=== PATIENT | male | born 1955 | race Caucasian/White ===

== ENCOUNTER 2021-10-20 17:00 | Inpatient (IN) | payer BC ==
[2021-10-20] MEDS ORDERED: NA CHLORIDE 0.9% 1,000 ML ONE (17:47)
[2021-10-20 17:50] LABS: Absolute Lymphocytes (CBC) 1.6 K/uL (0.7-4.9); Hematocrit 41.4 % (39.6-49.0); Lymphocytes % 25.4 % (15.3-44.8); MPV 8.3 fL (7.6-11.3); RBC Red Blood Cell Count 4.66 M/uL (4.33-5.43)
[2021-10-20 18:17] LABS: ALT/SGPT 26 U/L (12-78); AST/SGOT 12 U/L (15-37); Albumin 3.7 g/dL (3.4-5.0); Alkaline Phosphatase 62 U/L (45-117); BUN Blood Urea Nitrogen 17 mg/dL (7-18); Bicarbonate 27 mmol/L (21-32); Bilirubin Total 0.8 mg/dL (0.2-1.0); Glucose Level 106 mg/dL (74-106); Potassium 3.6 mmol/L (3.5-5.1); Protein, Total 6.6 g/dL (6.4-8.2); Sodium Level 143 mmol/L (136-145)
--- NOTE | 2021-10-20 18:45 | RAD REPORT ---
EXAM DESCRIPTION: RAD - Chest Single View - 10/20/2021 6:05 pm CLINICAL HISTORY: COUGH COMPARISON: Two view chest 01/29/2021 TECHNIQUE: AP portable chest image was obtained 10/20/2021 6:05 pm . FINDINGS: No focal lung parenchymal process. Interstitial pattern matches comparison. Heart and vasc ulature are normal. No measurable pleural effusion and no pneumothorax. No acute bony abnormality see n. No acute aortic findings suspected. IMPRESSION: No acute cardiopulmonary process. No significant change from comparison study.
--- NOTE | 2021-10-20 19:04 | RAD REPORT ---
EXAM DESCRIPTION: CT - Soft Tissue Neck W/Contr - 10/20/2021 6:43 pm CLINICAL HISTORY: swelling;Painleft-side COMPARISON: Thorax W/ Con dated 10/20/2021 TECHNIQUE: During dynamic enhancement using 100 milliliters nonionic IV contrast, axial 5 millimeter thick images of the neck were obtained. All CT scans are performed using dose optimization technique as appropriate and may include automated exposure control or mA/KV adjustment according to patient size. FINDINGS: No acute intracranial finding identified. In the lateral right cerebellum there is a 2.5 x 1 centimeter area of coarse calcification. This appears to be discrete from any specific vessel. Mor e laterally the transverse and sigmoid sinuses are unremarkable. This could be the sequela of an old injury. Intracranial detail is limited on a soft tissue neck examination. This is not seen as an acut darius clinically significant finding. This can be further evaluated with outpatient MRI imaging. No globe or orbital content abnormality. Mastoid air cells and paranasal sinuses are clear. Patient h as significant right deviation of the nasal septum anteriorly and left deviation of the septum pump tender iorly. No soft palate or tongue base abnormality. Epiglottis and laryngeal structures are unremarkable. No p haryngeal mass, asymmetry or enhancement. No tonsillar abnormality. Parapharyngeal fat is normal in a ppearance. The patient has a retropharyngeal fluid or low-density collection that is 2.1 cm AP x 3.5 cm TR x 8.2 cm CC. This spans the retropharyngeal space from the C1 level to the C6 level. This has a homogeneou s low-attenuation of approximately 16 Hounsfield units. No thickened rim or rind. Overlying pharyngea l tissue anteriorly is normal in signal intensity. There are prominent bony degenerative changes at C 5-C7. In the mid and inferolateral neck there is edematous stranding in the subcutaneous fatty tissue. This extends deeper into the neck between the trapezius and sternocleidomastoid muscles at the axial leve l of the hyoid bone. This stranding extends to the lateral margin of the retropharyngeal collection. No air or foreign body in the soft tissues. The parotid, submandibular and thyroid gland tissues are unremarkable. A few small sub centimeter cer vical lymph nodes are present with no bulky lymphadenopathy. IMPRESSION: Abnormal retropharyngeal fluid collection 2.1 cm AP x 3.5 cm TR x 8.2 cm CC pending betw een C1 and C6. The retropharyngeal collection is homogeneous low-density with no thickened rim, enhancing component or reactive changes to the overlying posterior pharyngeal mucosa. This could be an old sterile retrop haryngeal fluid collection from prior infection or retropharyngeal effusion. Patient has stranding in the fatty tissues of the left lateral neck that extends from the skin surfac e deeper into the neck abutting the retropharyngeal collection. It is possible the retropharyngeal co llection is decompressing into the left lateral fatty tissues. Retropharyngeal abscess cannot be excluded though the patient apparently does not have other symptoms supporting this diagnosis. No abnormal lymphadenopathy, pharyngeal abnormality or other suspicious mass. Dense calcifications in the lateral right cerebellum may be the sequela of an old injury. These are n ot fully assessed but not regarded as acutely significant. Comparison can be made with any prior outs jean claude imaging or patient could undergo outpatient MRI head examination.
--- NOTE | 2021-10-20 19:05 | RAD REPORT ---
EXAM DESCRIPTION: CT - Thorax W/ Con - 10/20/2021 6:51 pm CLINICAL HISTORY: swelling;Pain COMPARISON: <Comparisons> TECHNIQUE: Dynamically enhanced 5 mm thick images of the chest were obtained during administration o f 100 mL non-ionic IV contrast. All CT scans are performed using dose optimization technique as appropriate and may include automated exposure control or mA/KV adjustment according to patient size. FINDINGS: No mass or infiltrate in the lung parenchyma. No pleural thickening or pleural effusion. N o pneumothorax. No chest wall mass or abnormal axillary lymphadenopathy. No abnormal mediastinal or hilar mass or lymphadenopathy seen. Stranding at the anterior left base the neck is detailed in the separate CT neck report. IMPRESSION: Negative contrast enhanced CT chest examination.
--- NOTE | 2021-10-20 20:22 | EDPHYS ---
Physician Documentation [facility] Name: Adam Mata Age: 66 yrs Sex: Male : 1955 Arrival Date: 10/20/2021 Time: 17:02 Bed 13 Private MD: Monica Worthy ED Physician Victor Hugo King HPI: 10/20 17:33 This 66 yrs old Male presents to ER via Ambulatory with complaints of Neck rayo Problem. 17:33 The patient or guardian complains of swelling. The symptoms are located on the left rayo supraclavicular area. Onset: The symptoms/episode began/occurred 1 day(s) ago. Context: The problem was sustained at an unknown location. The pain does not radiate. The patient has not experienced similar symptoms in the past. Historical: - Allergies: 17:08 No Known Allergies; tw2 - Home Meds: 17:08 meloxicam 7.5 mg oral TbDi 1 tab once daily [Active]; atorvastatin oral [Active]; tw2 - PMHx: 17:08 Hypercholesterolemia; lymphedema b/l LE; tw2 - PSHx: 17:08 lap band; umbilical hernia; fusion C6-7; left ankle; tw2 - Immunization history:: Client reports receiving the 2nd dose of the Covid vaccine. - Social history:: Smoking status: Patient denies any tobacco usage or history of. Patient uses alcohol, on a daily basis. "a beer or 2 a day". - Family history:: not pertinent. ROS: 17:33 Constitutional: Negative for fever, chills, and weight loss, Eyes: Negative for injury, rayo pain, redness, and discharge, ENT: Negative for injury, pain, and discharge, Neck: Negative for injury, pain, and swelling, Cardiovascular: Negative for chest pain, palpitations, and edema, Respiratory: Negative for shortness of breath, cough, wheezing, and pleuritic chest pain, Abdomen/GI: Negative for abdominal pain, nausea, vomiting, diarrhea, and constipation, Back: Negative for injury and pain, : Negative for injury, bleeding, discharge, and swelling, MS/Extremity: Negative for injury and deformity, Skin: Negative for injury, rash, and discoloration, Neuro: Negative for headache, weakness, numbness, tingling, and seizure. Exam: 17:33 Constitutional: This is a well developed, well nourished patient who is awake, alert, rayo and in no acute distress. Head/Face: Normocephalic, atraumatic. Eyes: Pupils equal round and reactive to light, extra-ocular motions intact. Lids and lashes normal. Conjunctiva and sclera are non-icteric and not injected. Cornea within normal limits. Periorbital areas with no swelling, redness, or edema. ENT: Nares patent. No nasal discharge, no septal abnormalities noted. Tympanic membranes are normal and external auditory canals are clear. Oropharynx with no redness, swelling, or masses, exudates, or evidence of obstruction, uvula midline. Mucous membranes moist. Neck: Trachea midline, no thyromegaly or masses palpated, and no cervical lymphadenopathy. Supple, full range of motion without nuchal rigidity, or vertebral point tenderness. No Meningismus. Cardiovascular: Regular rate and rhythm with a normal S1 and S2. No gallops, murmurs, or rubs. Normal PMI, no JVD. No pulse deficits. Respiratory: Lungs have equal breath sounds bilaterally, clear to auscultation and percussion. No rales, rhonchi or wheezes noted. No increased work of breathing, no retractions or nasal flaring. Abdomen/GI: Soft, non-tender, with normal bowel sounds. No distension or tympany. No guarding or rebound. No evidence of tenderness throughout. Back: No spinal tenderness. No costovertebral tenderness. Full range of motion. Male : Normal genitalia with no discharge or lesions. Skin: Warm, dry with normal turgor. Normal color with no rashes, no lesions, and no evidence of cellulitis. MS/ Extremity: Pulses equal, no cyanosis. Neurovascular intact. Full, normal range of motion. Neuro: Awake and alert, GCS 15, oriented to person, place, time, and situation. Cranial nerves II-XII grossly intact. Motor strength 5/5 in all extremities. Sensory grossly intact. Cerebellar exam normal. Normal gait. Psych: Awake, alert, with orientation to person, place and time. Behavior, mood, and affect are within normal limits. 17:33 Chest/axilla: Inspection: normal, Palpation: is normal, Axilla: are normal, Lymph nodes: lymphadenopathy is not appreciated. 18:09 ECG was reviewed by the Attending Physician. [facility] Vital Signs: 17:06 BP 139 / 80; Pulse 78; Resp 17; Temp 97.8(TE); Pulse Ox 99% on R/A; Weight 120.2 kg; tw2 Height 5 ft. 10 in. (177.80 cm); Pain 0/10; 18:10 BP 135 / 88; Pulse 65; Resp 15; Pulse Ox 98% ; Pain 0/10; jl7 18:45 BP 125 / 77; Pulse 65; Resp 15; Pulse Ox 95% ; jl7 20:48 BP 133 / 84; Pulse 63; Resp 18; Pulse Ox 97% on R/A; ke1 17:06 Body Mass Index 38.02 (120.20 kg, 177.80 cm) tw2 MDM: 17:[address] [facility] 17:36 Differential diagnosis: cervical strain, Neck Contusion. Data reviewed: vital signs, [facility] nurses notes, lab test result(s), EKG, radiologic studies, CT scan, plain films. Data interpreted: school bus monitor: rate is 78 beats/min, rhythm is regular, Pulse oximetry: on room air is 99 %. Test interpretation: by ED physician or midlevel provider: ECG, plain radiologic studies. Counseling: I had a detailed discussion with the patient and/or guardian regarding: the historical points, exam findings, and any diagnostic results supporting the discharge/admit diagnosis, lab results, radiology results. 20:18 ED course: Dr. Penn came to evaluate patient. Recommended inpatient with steroids and jr8 antibiotics for the next couple of days and will reevaluate. Will consult will admit to medicine.. 10/20 17:30 Order name: CBC with Diff; Complete Time: 18:40 [facility] 10/20 17:30 Order name: Comprehensive Metabolic Panel; Complete Time: 18:40 [facility] 10/20 17:30 Order name: Chest Single View XRAY; Complete Time: 19:01 [facility] 10/20 19:11 Order name: Blood Culture Adult (2) [facility] 10/20 19:11 Order name: Lactate; Complete Time: 21:55 [facility] 10/20 20:40 Order name: SARS-COV-2 RT PCR (Document "Date of Onset" if Symptomatic); Complete Time: ke1 21:43 10/20 17:30 Order name: CT Soft Tissue Neck W/contr; Complete Time: 19:10 [facility] 10/20 17:30 Order name: CT Chest W/ Con; Complete Time: 19:10 rayo 10/20 17:30 Order name: EKG; Complete Time: 17:30 [facility] 10/20 17:30 Order name: EKG - Nurse/Tech; Complete Time: 18:45 rayo EC:09 Rate is 63 beats/min. Rhythm is regular. QRS [place] is Normal. MA interval is normal. QRS rayo interval is normal. QT interval is normal. No Q waves. T waves are Normal. No ST changes noted. Clinical impression: Normal ECG and No evidence of ischemia. Interpreted by me. Reviewed by me. Administered Medications: 18:15 Drug: NS 0.9% 500 ml Route: IV; Rate: bolus; Site: right forearm; jl7 18:45 Follow up: Response: No adverse reaction; IV Status: Completed infusion; IV Intake: jl7 500ml 18:15 Drug: NS 0.9% 1000 ml Route: IV; Rate: 125 ml/hr; Site: right forearm; jl7 21:01 Drug: Zosyn (piperacillin-tazobactam) 3.375 grams Route: IVPB; Infused Over: 60 mins; ke1 Site: right forearm; 22:01 Follow up: IV Status: Completed infusion ke1 22:13 Follow up: Response: No adverse reaction ke1 21:01 Drug: SOLU-Medrol (methylPrednisoLONE) 125 mg Route: IVP; Site: right forearm; ke1 22:12 Follow up: Response: No adverse reaction ke1 Disposition Summary: 10/20/21 20:21 Hospitalization Ordered Hospitalization Status: Inpatient Admission jr8 Provider: Joe Ackerman Location: Telemetry/MedSurg (Inpatient)(10/20/21 20:21) jr8 Condition: Stable(10/20/21 20:21) jr8 Problem: new(10/20/21 20:21) jr8 Symptoms: are unchanged(10/20/21 20:21) jr8 Bed/Room Type: Standard [facility] Room Assignment: 219(10/20/21 21:46) Diagnosis - Retropharyngeal fluid collection jr Forms: - Medication Reconciliation Form jr8 - SBAR form jr8 Addendum: 10/23/2021 06:36 Co-signature as Attending Physician, Victor Hugo King MD I agree with the assessment and c miranda plan of care. Signatures: Dispatcher [employer] EDMS Rufina Parker RN RN Victor Hugo Gill MD MD cha Roszak, Josh, GARRETT PA jr8 Paula Estrada RN RN tw2 Kathy Campos RN RN jl7 Lizeth Tamez RN RN ke1 Corrections: (The following items were deleted from the chart) 10/20 19:15 19:15 Home rayo rayo 19:15 19:15 new rayo rayo 19:15 19:15 have improved rayo rayo 19:15 19:15 Stable rayo [place]yo 19:15 19:15 Obesity, unspecified rayo rayo 19:15 19:15 Soft tissue disorder, unspecified - left supraclavicular swellimg rayo rayo 19:15 19:15 Localized swelling, mass and lump, unspecified - left suprclavicular rayo rayo 21:46 20:21 bernie medina
--- NOTE | 2021-10-20 20:22 | ER ---
Nurse's Notes [facility] Name: Adam Mata Age: 66 yrs Sex: Male : 1955 Arrival Date: 10/20/2021 Time: 17:02 Bed 13 Private MD: Monica Worthy Diagnosis: Retropharyngeal fluid collection Presentation: 10/20 17:06 Chief complaint: Patient states: my neck is all swollen up. since this morning. just a tw2 big buldge on the LEFT side of neck and i feel like i am having trouble swollen. Coronavirus screen: At this time, the client does not indicate any symptoms associated with coronavirus-19. Ebola Screen: Patient denies travel to an Ebola-affected area in the 21 days before illness onset. Initial Sepsis Screen: Does the patient meet any 2 criteria? No. Patient's initial sepsis screen is negative. Does the patient have a suspected source of infection? No. Patient's initial sepsis screen is negative. Risk Assessment: Do you want to hurt yourself or someone else? Patient reports no desire to harm self or others. Onset of symptoms was October 20, 2021. 17:06 Method Of Arrival: Ambulatory tw2 17:06 Acuity: MICHELLE 3 tw2 Triage Assessment: 17:10 General: Appears in no apparent distress. obese, well groomed, Behavior is calm, tw2 cooperative, appropriate for age. Pain: Denies pain. Historical: - Allergies: 17:08 No Known Allergies; tw2 - Home Meds: 17:08 meloxicam 7.5 mg oral TbDi 1 tab once daily [Active]; atorvastatin oral [Active]; tw2 - PMHx: 17:08 Hypercholesterolemia; lymphedema b/l LE; tw2 - PSHx: 17:08 lap band; umbilical hernia; fusion C6-7; left ankle; tw2 - Immunization history:: Client reports receiving the 2nd dose of the Covid vaccine. - Social history:: Smoking status: Patient denies any tobacco usage or history of. Patient uses alcohol, on a daily basis. "a beer or 2 a day". - Family history:: not pertinent. Screenin:10 Abuse screen: Denies threats or abuse. Denies injuries from another. Nutritional jl7 screening: No deficits noted. Tuberculosis screening: No symptoms or risk factors identified. Fall Risk IV access (20 points). Total Avila Fall Scale indicates No Risk (0-24 pts). Assessment: 18:45 General: Appears in no apparent distress. uncomfortable, Behavior is calm, cooperative, jl7 appropriate for age. Pain: Denies pain. Neuro: Level of Consciousness is awake, alert, obeys commands, Oriented to person, place, time, situation. Cardiovascular: Denies chest pain, shortness of breath, Patient's skin is warm and dry. Respiratory: Airway is patent Respiratory effort is even, unlabored, Respiratory pattern is regular, symmetrical. Derm: Skin is pink, warm \\T\\ dry. Musculoskeletal: Swelling present in left supraclavicular area. 20:00 General: Appears comfortable, Behavior is calm, cooperative. Pain: Denies pain. ke1 21:00 Reassessment: No changes from previously documented assessment. Patient is alert, ke1 oriented x 3, equal unlabored respirations, skin warm/dry/pink. 22:05 Reassessment: Attempt to reach 2nd floor., all the lines are busy. ke1 22:05 Reassessment: No changes from previously documented assessment. ke1 22:24 Reassessment: Report given by Omar HAND to Yoko on 2nd floor. ke1 Vital Signs: 17:06 BP 139 / 80; Pulse 78; Resp 17; Temp 97.8(TE); Pulse Ox 99% on R/A; Weight 120.2 kg; tw2 Height 5 ft. 10 in. (177.80 cm); Pain 0/10; 18:10 BP 135 / 88; Pulse 65; Resp 15; Pulse Ox 98% ; Pain 0/10; jl7 18:45 BP 125 / 77; Pulse 65; Resp 15; Pulse Ox 95% ; jl7 20:48 BP 133 / 84; Pulse 63; Resp 18; Pulse Ox 97% on R/A; ke1 17:06 Body Mass Index 38.02 (120.20 kg, 177.80 cm) tw2 ED Course: 17:02 Patient arrived in ED. as 17:03 Monica Worthy is Private Physician. as 17:08 Triage completed. tw2 17:10 Arm band placed on. tw2 17:12 Victor Hugo King MD is Attending Physician. [facility] 17:27 Campos, Jahala, RN is Primary Nurse. jl7 17:30 Patient has correct armband on for positive identification. Placed in gown. Bed in low jl7 position. Call light in reach. Side rails up X 1. quality assurance monitor body on. Pulse ox on. NIBP on. 17:45 Initial lab(s) drawn, by me, sent to lab. Inserted saline lock: 20 gauge in right jl7 forearm, using aseptic technique. Blood collected. 18:07 Chest Single View XRAY In Process Unspecified. EDMS 18:15 EKG done, by ED staff, reviewed by Victor Hugo King MD. jl7 18:45 CT Soft Tissue Neck W/contr In Process Unspecified. EDMS 18:52 CT Chest W/ Con In Process Unspecified. EDMS 19:15 Monica Worthy is Referral Physician. rayo 19:15 Juan Diego Romero MD is Referral Physician. rayo 19:21 Primary Nurse role handed off by Kathy Campos RN jl7 19:22 Report given to JERARDO Ruiz. jl7 19:29 Lizeth Tamez RN is Primary Nurse. ke1 20:17 Caleb Castillo PA is PHCP. jr8 20:19 Joe Ackerman MD is Hospitalizing Provider. jr8 22:25 No provider procedures requiring assistance completed. ke1 Administered Medications: 18:15 Drug: NS 0.9% 500 ml Route: IV; Rate: bolus; Site: right forearm; jl7 18:45 Follow up: Response: No adverse reaction; IV Status: Completed infusion; IV Intake: jl7 500ml 18:15 Drug: NS 0.9% 1000 ml Route: IV; Rate: 125 ml/hr; Site: right forearm; jl7 21:01 Drug: Zosyn (piperacillin-tazobactam) 3.375 grams Route: IVPB; Infused Over: 60 mins; ke1 Site: right forearm; 22:01 Follow up: IV Status: Completed infusion ke1 22:13 Follow up: Response: No adverse reaction ke1 21:01 Drug: SOLU-Medrol (methylPrednisoLONE) 125 mg Route: IVP; Site: right forearm; ke1 22:12 Follow up: Response: No adverse reaction ke1 Intake: 18:45 IV: 500ml; Total: 500ml. jl7 Outcome: 19:15 Discharge ordered by . rayo 20:21 Decision to Hospitalize by Provider. bernie 22:25 Admitted to Med/surg accompanied by tech. colleen 23:06 Patient left the ED. ke1 Signatures: Dispatcher [employer] EDMS Victor Hugo King MD MD cha Martinez, Amelia as Roszak, Josh, PA PA jr8 Paula Estrada, RN RN tw2 Kathy Campos RN RN jl7 Lizeth Tamez RN RN ke1
[2021-10-20] MEDS ORDERED: NA CHLORIDE 0.9% 100 ML IV ONE (20:45)
[2021-10-20] MEDS ORDERED: METHYLPREDNISOLONE 125 MG INJ ONE (20:45)
--- NOTE | 2021-10-20 20:45 | P.HP ---
Certification for Inpatient Patient admitted to: Inpatient With expected LOS: >2 Midnights Patient will require the following post-hospital care: None Practitioner: I am a practitioner with admitting privileges, knowledge of patient current condition, hospital course, and medical plan of care. Services: Services provided to patient in accordance with Admission requirements found in Title 42 Section 412.3 of the Code of Federal Regulations Patient History Date of Service: 10/20/21 Reason for admission: Retropharyngeal fluid collection History of Present Illness: 66-year-old male history of hyperlipidemia, lymphedema presents emergency department for left neck swelling that he noticed this morning. Patient denies any pain or other symptoms but does have noted swelling to the left trapezius area. Patient was evaluated in the emergency department his labs were unremarkable he had a CT scan of his chest as well as soft tissues CT of t he neck. CT of the neck demonstrated abnormal retropharyngeal fluid collection 2.1 x 3.5 x 8.2 cm between C1 and C6, collection is homogeneous low-density with no thickened rim enhancing component or reactive changes to the overlying posterior pharyngeal mucosa could be also retropharyngeal fluid collection from prior infection or retropharyngeal effusion. ENT was called all patient was in the emergency department who came and saw the patient. She stated that she doubts retropharyngeal abscess the patient appears nontoxic not having any pain at this time at all his labs are unremarkable she recommends admission, IV steroids, IV antibiotics. She plans to see him again tomorrow around noon. Allergies No Known Allergies Allergy (Verified 02/08/21 09:54) Home Medications: Aspirin 81 mg PO DAILY 02/08/21 Atorvastatin Calcium [Lipitor] 10 mg PO BEDTIME 02/08/21 - Past Medical/Surgical History Diabetic: No -: Hyperlipidemia -: Left ankle ligament repair -: Fusion C6 & C7 -: Umbilical hernia repair -: Lap band Psychosocial/ Personal History: Lives at home with his - Social History Smoking Status: Never smoker Alcohol use: Yes Place of Residence: Home Review of Systems 10-point ROS is otherwise unremarkable Musculoskeletal: Other (Left neck swelling) Physical Examination - Physical Exam General: Alert, In no apparent distress, Oriented x3 HEENT: Atraumatic, PERRLA, Mucous membr. moist/pink, EOMI, Sclerae nonicteric Neck: Supple, 2+ carotid pulse no bruit, No LAD, Without JVD or thyroid abnormality Respiratory: Clear to auscultation bilaterally, Normal air movement Cardiovascular: Regular rate/rhythm, Normal S1 S2 Gastrointestinal: Normal bowel sounds, No tenderness Musculoskeletal: No tenderness Integumentary: No rashes, Other (abdnormal fluid collection, left trapezius area) Neurological: Normal gait, Normal speech, Normal strength at 5/5 x4 extr, Normal tone, Normal affect Lymphatics: No axilla or inguinal lymphadenopathy - Studies Laboratory Data (last 24 hrs) 10/20/21 17:40: Sodium 143, Potassium 3.6, BUN 17, Creatinine 0.65, Glucose 106, Total Bilirubin 0.8, AST 12 L, ALT 26, Alkaline Phosphatase 62 10/20/21 17:40: WBC 6.4, Hgb 14.3, Hct 41.4, Plt Count 222 Assessment and Plan - Plan Assessment: Abnormal retropharyngeal fluid collection Hyperlipidemia VAZQUEZ Plan: Abnormal retropharyngeal fluid collection: ENT evaluated patient in the emergency department, recommendation for Solu-Medrol, Unasyn at this time will reevaluate tomorrow. N.p.o. after midnight in case of need for intervention. Hyperlipidemia: Obtain and continue home medication as appropriate VAZQUEZ: Provide with CPAP at night. DVT PPX: SCD Code status: Full Discharge Plan: Home Plan to discharge in: 48 Hours - Advance Directives Does patient have a Living Will: No Does patient have a Durable POA for Healthcare: No - Code Status/Comfort Care Code Status Assessed: Yes (Full code) Critical Care: No Time Spent Managing Pts Care (In Minutes): 55
[2021-10-20] MEDS ORDERED: PIPERACIL/TAZO 3.375 GM VIAL IV ONE (20:46)
[2021-10-20] MEDS ORDERED: ONDANSETRON 4 MG/2 ML VIAL IV PRN (22:57)
[2021-10-20] MEDS ORDERED: HYDROCODONE/APAP 5/325 MG TAB PO PRN (22:57)
[2021-10-20] MEDS: METHYLPREDNISOLONE 125 MG INJ IV SCH (23:42)
[2021-10-20] MEDS: AMPICILLIN/SULBACT 3 GM in NA CHLORIDE 0.9% 100 ML IVPB SCH (23:42)
[2021-10-21 01:14] VITALS: BMI 38.4
--- NOTE | 2021-10-21 01:41 | CON ---
Pcp: Monica Worthy M.D. Chief Complaint: Neck swelling. History Of Present Illness: The patient is a pleasant 66-year-old male, who presents with his , who used to be a nurse for [employer], today in the emergency room after experiencing acute onset of left supraclavicular swelling as well as voice changes and mild dysphagia. They were instructed by family member to go to the emergency room for further evaluation. The patient does state that he had a very similar episode, but he can't remember exactly when. When he was driving, his throat closed off and he could not breathe. However, at this time, he states that the symptoms are milder and he reports mild dysphagia, no odynophagia, and positive for globus sensation in the middle of his throat and then he noticed that his left supraclavicular neck was inflamed. He denies fever or chills and feels overall well with the exception of the above-mentioned complaints. He does use a CPAP at home for obstructive sleep apnea, however, he is not sure what the pressure is set at. He also has a history of cervical neck fusion approximately 20 years ago and he has had no issues postsurgically from that surgery. He denies dyspnea, cough, or other ENT complaints today. Past Medical History: Obstructive sleep apnea, on a CPAP machine nightly; hypercholesterolemia; lymphedema; bilateral lower extremity edema. Past Surgical History: Laparoscopic band, umbilical hernia repair, fusion of C6-7, and left ankle surgery. Social History: Denies tobacco and drinks several beers daily. Home Medications: Meloxicam and atorvastatin. Allergies: NO KNOWN DRUG ALLERGIES. Review of Systems: Constitutional: Negative for fever, chills, and weight loss. Eyes: Negative for pain, redness, or discharge. Ears: Negative for otalgia, otorrhea, or mastoid pain. Nose: Negative for rhinorrhea, postnasal drip, purulent discharge, or sinus/facial pain or pressure. Throat: Positive for mild dysphagia, but negative for odynophagia. Neck: Positive for left supraclavicular neck swelling. Respiratory: Negative for dyspnea or cough. Skin: Negative for rash or discoloration. Physical Examination: Constitutional: The patient is a well-developed, well-nourished patient, who is awake and alert, in no acute distress. Head: Atraumatic, normocephalic. Eyes: PERRLA/EOMI. Ears: Bilateral external auditory canals patent. Tympanic membranes intact with mild amount of cerumen noted medially. The patient is also wearing binaural amplification. Nose: Nares patent. Midline septum. Moist nasal mucosa. No purulence. Oral Cavity: Uvula is midline. Posterior oropharynx is intact, although redundant soft palate; Tam type 2/3 and physiologically large base of tongue, but no evidence of exudate or erythema of the mucosa. Neck: The patient has soft tissue swelling of the left supraclavicular neck. No thyromegaly or lymphadenopathy palpated. After obtaining verbal consent, a flexible nasopharyngolaryngoscopy was performed. The scope was lubricated and placed into the left nasal cavity and advanced along the floor back to the area of the larynx. I was able to easily advance the scope with a sniffing motion of the patient. Larynx was intact with wide patent airway and excellent movement of false and true vocal folds. There was no edema noted of the epiglottis or the posterior cricoid area. I could see subglottic and the trachea appeared intact and patent. There was a posterior hypopharyngeal swelling, but no evidence of erythema or exudate. The scope was withdrawn to the nasopharynx. Nasopharynx was intact with patent eustachian tube orifices. No exudate. The scope was completely withdrawn and the patient tolerated well. CT scan of the neck demonstrated a rather large fluid collection, roughly 8 cm in length and 2 cm in width, extending from roughly the tip of the epiglottis inferiorly past the vocal folds. The collection is midline. CT scan of the chest is negative for infiltrate and it shows that the fluid collection is going into the left supraclavicular space. Diagnosis: Retropharyngeal cellulitis versus abscess --I favor cellulitis at this point. Recommendations: 1. We will start steroids and antibiotics IV and place n.p.o. after midnight for possible drainage if the patient worsens. 2. This is an inpatient admission and further recommendations are forthcoming. 3. Airway precautions. Thank you, Dr. King, for this most interesting consult. WILLOW/GILBERT Voice ID: [id number] Report ID: [id number]
[2021-10-21 04:08] LABS: Absolute Lymphocytes (CBC) 0.7 K/uL (0.7-4.9); Hematocrit 42.3 % (39.6-49.0); Lymphocytes % 11.5 % (15.3-44.8); MPV 8.7 fL (7.6-11.3); RBC Red Blood Cell Count 4.78 M/uL (4.33-5.43)
[2021-10-21 04:19] LABS: ALT/SGPT 26 U/L (12-78); AST/SGOT 13 U/L (15-37); Albumin 3.5 g/dL (3.4-5.0); Alkaline Phosphatase 61 U/L (45-117); BUN Blood Urea Nitrogen 16 mg/dL (7-18); Bicarbonate 28 mmol/L (21-32); Bilirubin Total 0.7 mg/dL (0.2-1.0); Glucose Level 206 mg/dL (74-106); Protein, Total 6.5 g/dL (6.4-8.2); Sodium Level 140 mmol/L (136-145)
[2021-10-21 05:09] LABS: Blood Morphology Comment NOT SEEN (NOT SEEN); Platelet Estimate ADEQ
[2021-10-21] MEDS: AMPICILLIN/SULBACT 3 GM in NA CHLORIDE 0.9% 100 ML IVPB SCH ×4 (05:22→23:27)
[2021-10-21] MEDS: METHYLPREDNISOLONE 125 MG INJ IV SCH ×4 (05:22→23:27)
--- NOTE | 2021-10-21 12:34 | EKG ---
Test Date: 2021-10-20 Test Time: 17:59:28 Instrument Person: JUSTIN MEASUREMENT RESULTS: Intervals: Rate: 63 MA: 144 QRSD: 88 QT: 424 QTc: 433 Brooks: P: 43 MA: 144 QRS: 42 T: 56 INTERPRETIVE STATEMENTS: Normal sinus rhythm Normal ECG No previous ECG available for comparison Electronically Signed On 10-21-21 12:33:10 CDT by Twan Bravo
[2021-10-21] MEDS: NA CHLORIDE 0.9% 1,000 ML IV SCH ×2 (12:37→23:28)
--- NOTE | 2021-10-21 15:40 | P.PN ---
Date of Service: 10/21/21 Subjective: no acute events overnight feels swelling is slightly better, voice improved denies any recent procedures/trauma, remote history of c-spine surgery ROS: 10 point ROS as noted above, otherwise negative Physical exam GEN: Alert, oriented, NAD HEENT: Normal conjunctiva, sclera anicteric CV: Regular rate and rhythm, no edema Pulm: Nonlabored respirations on room air ABD: Soft, nontender, nondistended Integumentary: swelling, nontender in L neck / supraclavicular area Neuro: Normal speech, normal affect Problem List Abnormal retropharyngeal fluid collection Hyperlipidemia VAZQUEZ s/p evaluation by ENT in ER recommended steroids and unasyn patient feels slight improvement ENT to re-eval today, possible surgery here vs needing transfer to tertiary care center unclear etiology of fluid collection; pt reports sudden onset continue CPAP at night VTE: SCDs Code: full Dispo: home in 1-2 days, pending further eval by ENT Time Spent Managing Pts Care (In Minutes): 35
--- NOTE | 2021-10-21 18:12 | P.PN ---
ENT Progress Note Patient seen and examined. Still reports muffled voice and mild dysphagia despite IV meds, with dry mouth. Denies fever, body aches, sore throat, or dyspnea. Exam reveals muffled voice with patent oropharynx. Impression: 1. Retropharngeal fluid collection vs. cellulitis Plan: 1. Discussed with patient in detail-- plan is to take to OR tomorrow and aspirate via needle or incision and drainage of any fluid collection and submit to lab for cultures, gram stain. 2. Discussed case briefly with Dr. Whitten, spinal surgeon, and he will review CT images and if he feels this may be due to his remote cervical fusion surgery, he will see patient post-discharge. 3. NPO after midnight.
[2021-10-22 04:32] LABS: Absolute Lymphocytes (CBC) 0.9 K/uL (0.7-4.9); Hematocrit 40.6 % (39.6-49.0); Lymphocytes % 6.4 % (15.3-44.8); MPV 8.6 fL (7.6-11.3)
[2021-10-22 04:54] LABS: ALT/SGPT 21 U/L (12-78); AST/SGOT 7 U/L (15-37); Albumin 3.2 g/dL (3.4-5.0); Alkaline Phosphatase 54 U/L (45-117); BUN Blood Urea Nitrogen 21 mg/dL (7-18); Bicarbonate 28 mmol/L (21-32); Bilirubin Total 0.4 mg/dL (0.2-1.0); Glucose Level 222 mg/dL (74-106); Potassium 4.4 mmol/L (3.5-5.1); Sodium Level 142 mmol/L (136-145)
[2021-10-22 04:55] LABS: Blood Morphology Comment NOT SEEN (NOT SEEN); Platelet Estimate ADEQ
[2021-10-22 05:03] LABS: Urine Appearance Clear (Clear); Urine Bilirubin Negative (Negative); Urine Blood Negative (Negative); Urine Color Yellow (Yellow); Urine Glucose 3+ (Negative); Urine Microscopic Reflex NO UMIC; Urine Protein Negative (Negative); Urine Specific Gravity 1.025 (1.005-1.030); Urine pH 5.5 (5.0-7.0)
[2021-10-22] MEDS: METHYLPREDNISOLONE 125 MG INJ IV SCH ×3 (05:51→17:17)
[2021-10-22] MEDS: AMPICILLIN/SULBACT 3 GM in NA CHLORIDE 0.9% 100 ML IVPB SCH ×3 (05:51→17:17)
--- NOTE | 2021-10-22 06:42 | P.PN ---
Date of Service: 10/22/21 Subjective: doing well, voice improving, feels swelling improving planned for surgery today with ENT ROS: 10 point ROS as noted above, otherwise negative Physical exam GEN: Alert, oriented, NAD HEENT: Normal conjunctiva, sclera anicteric, mild muffled voice CV: Regular rate and rhythm, no edema Pulm: Non-labored respirations on room air ABD: Soft, nontender, nondistended Integumentary: swelling, non-tender in L neck / supraclavicular area Neuro: Normal speech, normal affect Problem List Abnormal retropharyngeal fluid collection Hyperlipidemia VAZQUEZ s/p evaluation by ENT in ER recommended steroids and Unasyn patient feels slight improvement ENT planning to take to OR today, eval fluid unclear etiology of fluid collection; pt reports sudden onset continue CPAP at night VTE: SCDs Code: full Dispo: home in 1-2 days, pending further eval by ENT Time Spent Managing Pts Care (In Minutes): 35
[2021-10-22] MEDS: NA CHLORIDE 0.9% 1,000 ML IV SCH (10:26)
[2021-10-22] MEDS ORDERED: SUGAMMADEX SODIUM 200 MG/2 ML VIAL IV ONE (12:49)
[2021-10-22] MEDS ORDERED: SUCCINYLCHOLINE 20 MG/ML (10 ML) IV ONE (12:49)
[2021-10-22] MEDS ORDERED: MIDAZOLAM HCL 2 MG/2 ML INJ ONE (12:50)
[2021-10-22] MEDS ORDERED: BUPIVACAINE 0.25% PF 10 ML VIAL ONE (12:50)
[2021-10-22] MEDS ORDERED: LIDOCAINE 1% MPF 5 ML VIAL ONE (12:55)
[2021-10-22] MEDS ORDERED: propofoL 200 MG/20 ML VIAL IV ONE (12:55)
[2021-10-22] MEDS ORDERED: FENTANYL CITR 100 MCG/2 ML ONE (12:55)
[2021-10-22] MEDS ORDERED: ROCURONIUM 50 MG/5 ML VIAL IV ONE (13:30)
[2021-10-22] MEDS ORDERED: ONDANSETRON 4 MG/2 ML VIAL ONE (13:31)
[2021-10-22 14:11] VITALS: O2SAT 98
[2021-10-22 16:59] VITALS: BP 118/58; TEMP 97.8
--- NOTE | 2021-10-22 17:30 | P.PN ---
Date of Service: 10/22/21 ENT Post-Op Note Patient seen and examined. Patient feels better after Incision and drainage this afternoon. He states dysphagia is resolved and he is back on a regular diet and swallowing with no regurgitation, odynophagia and he denies globus sensation. Exam reveals patent oropharynx with no bleeding or blood clots. Impression: 1. Retropharngeal hematoma Plan: 1. May d/c home to f/u with me in clinic in 2 weeks. 2. Salt water gargles TID 3. Discussed with Dr. Whitten, spinal surgeon, and he recommends watchful waiting for now. May need to refer if this recurs. Thank you Dr. Ackerman for your excellent medical care.
--- NOTE | 2021-10-22 20:01 | P.DS ---
Admission Date: 10/20/21 Discharge Date: 10/22/21 Disposition: ROUTINE DISCHARGE Discharge Condition: FAIR Reason for Admission: Retropharyngeal fluid collection Consultations: ENT - Dr. Penn Procedures: Problem List retropharyngeal hematoma Hyperlipidemia VAZQUEZ Brief History of Present Illness: 66yo M, PMH: HLD, lymphedema, prior c-spine fusion/surgery. Presented to ED due to sudden onset (<1 day) of swelling in left supraclavicular area, associated with muffled voice and "feeling something" in his throat when he swallowed. CT revealed a retropharyngeal fluid collection measuring 2.1 x 3.5 x 8.2 cm between C1 and C6. ENT was consulted and evaluated the patient in the ED. Recommended admission and empiric treatment with antibiotics and steroids. Patient was afebrile and bloodwork unremarkable. Hospital Course: Patient empirically treated with antibiotics and steroids. Hewas taken to the OR by Dr. Penn on 10/22. Found to have a small hematoma with mix of old blood. Suspect osteophyte may have rubbed on a small vessel that lead to a brief bleed. Patient deemed stable for discharge home. Follow up with Dr. Penn in ~2 weeks, as discussed. Local wound care as discussed. No need for antibiotics / no new medications on discharge. Resume home medications as prescribed. Patient to follow up with Dr. Whitten - Spinal surgeon if this recurs. Vital Signs/Physical Exam: Temp Pulse Resp BP Pulse Ox 97.8 F 88 18 118/58 L 96 10/22/21 16:00 10/22/21 16:00 10/22/21 16:00 10/22/21 16:00 10/22/21 16:00 Physical exam GEN: Alert, oriented, NAD HEENT: Normal conjunctiva, sclera anicteric CV: Regular rate and rhythm, no edema Pulm: Non-labored respirations on room air Integumentary: mild swelling in L supraclavicular area, no tenderness Neuro: Normal speech, normal affect Laboratory Data at Discharge: WBC 14.2 K/uL (4.3-10.9) H D 10/22/21 04:04 Hgb 13.7 g/dL (13.6-17.9) 10/22/21 04:04 Hct 40.6 % (39.6-49.0) 10/22/21 04:04 Plt Count 236 K/uL (152-406) 10/22/21 04:04 Sodium 142 mmol/L (136-145) 10/22/21 04:04 Potassium 4.4 mmol/L (3.5-5.1) 10/22/21 04:04 BUN 21 mg/dL (7-18) H 10/22/21 04:04 Creatinine 0.78 mg/dL (0.55-1.3) 10/22/21 04:04 Glucose 222 mg/dL (74-106) H 10/22/21 04:04 Total Bilirubin 0.4 mg/dL (0.2-1.0) 10/22/21 04:04 AST 7 U/L (15-37) L 10/22/21 04:04 ALT 21 U/L (12-78) 10/22/21 04:04 Alkaline Phosphatase 54 U/L (45-117) 10/22/21 04:04 Home Medications: Aspirin 81 mg PO DAILY 02/08/21 Atorvastatin Calcium [Lipitor] 10 mg PO DAILY 02/08/21 Meloxicam 15 mg PO DAILY 10/20/21 Cholecalciferol (Vitamin D3) [Vitamin D 5,000 IU Cap*] 1 tab PO DAILY 10/21/21 [place]-3/Dha/Epa/Fish Oil [Fish Oil 1,000 mg Softgel] 1 tab PO DAILY 10/21/21 Potassium Chloride 1 tab PO DAILY 10/21/21 Physician Discharge Instructions: Patient was taken to the OR by Dr. Penn on 10/22. Found to have a small hematoma with mix of old blood. Suspect osteophyte may have rubbed on a small vessel that lead to a brief bleed. Patient deemed stable for discharge home. Follow up with Dr. Penn in ~2 weeks, as discussed. Local wound care as discussed. No need for antibiotics / no new medications on discharge. Resume home medications as prescribed. Followup: Miley Penn DO [ACTIVE - CAN ADMIT] - (Call to schedule follow up appointment) Monica Worthy FNP [Primary Care Provider] - (Call to schedule follow up appointment) Time spent managing pt's care (in minutes): 45
--- NOTE | 2021-10-23 03:29 | OP ---
Date of Procedure: 10/22/2021 Surgeon: CARLOS WHITE Preoperative Diagnosis: Retropharyngeal fluid collection-acute. Postoperative Diagnosis: Acute hematoma-retropharynx. Procedure: Incision and drainage of retropharyngeal hematoma. Anesthesia: General endotracheal anesthesia was administered. I also infiltrated approximately 5 mL of 0.25% Marcaine without epinephrine around the incision site. Estimated Blood Loss: Approximately 3-5 mL. Specimens: None. Findings: Submucosal blood noted in the wound cavity, mostly old blood with some fresh blood, which measured approximately 3-5 mL. No evidence of purulence or seroma fluid. Complications: None. Disposition: Stable. The patient tolerated the procedure well. Indications For Procedure: The patient is a pleasant 66-year-old male who presented acutely to the emergency room with retropharyngeal fluid collection and was started on antibiotics and steroids, but still noted [id number] dysphagia and muffled voice. These were indications to bring the patient to operative suite for the above-mentioned procedure. He understood, all questions were answered. Risks versus benefits and complications were explained in detail and a consent form was signed and was placed in the chart. Description Of Procedure: The patient was transferred from the preoperative holding area to the operative suite by Department of Anesthesia and placed on the operating table supine, sedated and intubated in normal fashion. The endotracheal tube was taped to the left oral commissure and then the patient was rotated 90 degrees and a shoulder roll was placed. Head and eyes were covered with sterile blue towels and a tooth guard was placed over the upper maxillary teeth. I first utilized a McIvor retractor and introduced it along the right oral commissure and directed along to the right of the endotracheal tube and suspended from the Tobias stand. However, access to the hematoma could not be reached by this method thus, I de-suspended and removed and used the laryngoscope instead. I was able to get an excellent visualization of the retropharynx, at this point. While holding the scope in place, I then tried to aspirate fluid utilizing 18-gauge spinal needle, however, there was nothing that aspirated through the needle. Thus, I switched over to a sickle knife, in which a 2 cm incision was made vertically in the midline of the retropharyngeal mucosa and down to the submucosa level. There was blood, old and fresh, which was suctioned from the wound cavity and then I irrigated the wound with saline. Hemostasis was achieved with suction Bovie cautery on a setting of 20 for coagulation. Once hemostasis was achieved, the laryngoscope was removed and an oral airway was placed. He was turned back over to the Department of Anesthesia in stable condition and the bite guard was removed as well as the head turban and shoulder roll. He will be discharged home and will follow up in 2 weeks in my outpatient clinic or sooner if needed. WILLOW/GILBERT Voice ID: [id number] Report ID: [id number] [id number]
== END 2021-10-22 18:20 | disposition home or self-care (01) | DRG 145 ==
LOC: ER 17:00 → ERHOLD 20:26 → 2ND 22:22
PROVIDERS: ADMIT Hospitalist; ATTEND Hospitalist
PROC: 5A09457 Assistance with Respiratory Ventilation, 24-96 Consecutive Hours, Continuous Positive Airway Pressure (ICD-10-PCS; 2021-10-20)
PROC: 0C9M8ZZ Drainage of Pharynx, Via Natural or Artificial Opening Endoscopic (ICD-10-PCS; principal; 2021-10-22 12:00)
DX: J39.2 Other diseases of pharynx (principal); E78.5 Hyperlipidemia, unspecified; G47.33 Obstructive sleep apnea (adult) (pediatric); M25.70 Osteophyte, unspecified joint; R13.10 Dysphagia, unspecified; Z79.82 Long term (current) use of aspirin; Z79.899 Other long term (current) drug therapy; Z99.89 Dependence on other enabling machines and devices; Z20.822 Contact with and (suspected) exposure to COVID-19
CPT/HCPCS: 36415; 70491; 71045; 71260; 80053; 81003; 83605; 85025; 87040; 87205; 93005; 94660; 96365; 96375; 99285; J0295; J0330; J2250; J2405; J2543; J2704; J2930; J3010; J7030; Q9967; U0003